=== PATIENT | female | born 1960 | race Caucasian/White ===

== ENCOUNTER 2018-07-13 10:14 | Day surgery (SDC) ==
--- NOTE | 2018-07-07 10:04 | EKG Report ---
Test Performed on : 07/07/2018 09:47:15 AM Test Reason : PAT Blood Pressure : / mmHG Vent. Rate : 069 BPM Atrial Rate : 069 BPM P-R Int : 134 ms QRS Dur : 092 ms QT Int : 412 ms P-R-T Axes : 046 021 053 degrees QTc Int : 441 ms Normal sinus rhythm. Normal ECG No previous ECGs available Confirmed by Ron Montemayor MD ([id number]) on 07/07/2018 10:25:06 AM
[2018-07-07 10:27] LABS: BASO# 0.13 X1000 (0.0-0.2); BASO% 2.3 % (0.0-0.8); EOS# 0.19 X1000 (0.0-0.7); EOS% 3.3 % (0.0-10.0); IMM GRAN# 0.02 X1000 (0.0-0.04); IMM GRAN% 0.4 % (0.0-0.5); LYMPH# 1.48 X1000 (1.2-3.4); MCH 31.9 PG (27-31); MCHC 34.1 g/dL (33-37); MCV 93.6 FL (81-99); MONO# 0.54 X1000 (0.11-0.59); MONO% 9.5 % (1.7-9.3); MPV 12.1 FL (7.4-10.4); NEUT# 3.33 X1000 (1.4-6.5); NEUT% 58.5 % (42.2-75.2); PLT 218 X1000 (130-400); RDW 12.7 % (11.5-14.5); WBC 5.69 X1000 (4.8-10.8)
[2018-07-07 11:02] LABS: AGAP 12; BUN 16 mg/dL (8-22); CALCIUM 10.5 mg/dL (8.8-10.2); CHLORIDE 103 mmol/L (98-107); COSMO 288; CREATININE 0.8 mg/dL (0.5-0.9); ESTIMATED GFR > 60; GLUCOSE 98 mg/dL (70-104); POTASSIUM 4.1 mmol/L (3.5-5.1); SODIUM 144 mmol/L (136-145); TCO2 29 mmol/L (25-35)
[2018-07-13] MEDS ORDERED: KEFZOL 1 GM/D5W 2 GM/100 ML IVPB ONE (10:43)
[2018-07-13] MEDS ORDERED: REGLAN ONE (10:43)
[2018-07-13] MEDS ORDERED: LR 1,000 ML ONE (10:43)
[2018-07-13] MEDS ORDERED: PEPCID ONE (10:43)
[2018-07-13] MEDS ORDERED: VALIUM ONE (11:28)
[2018-07-13] MEDS ORDERED: DIPRIVAN 1% ONE (11:40)
[2018-07-13] MEDS ORDERED: FENTANYL ONE (11:40)
[2018-07-13] MEDS ORDERED: ROBINUL ONE ×2 (11:40→13:24)
[2018-07-13] MEDS ORDERED: DECADRON ONE (11:40)
[2018-07-13] MEDS ORDERED: ZOFRAN ONE (11:40)
[2018-07-13] MEDS ORDERED: XYLOCAINE-MPF 2% ONE (12:17)
[2018-07-13] MEDS ORDERED: QUELICIN (DOSE) ONE (12:18)
[2018-07-13] MEDS ORDERED: VERSED ONE (12:18)
[2018-07-13] MEDS ORDERED: MARCAINE 0.25% PF/EPI 1:200,000 ONE (12:24)
[2018-07-13] MEDS ORDERED: NEOSTIGMINE ONE (13:25)
[2018-07-13] MEDS: DEMEROL ONE ×2 (14:51→14:56)
[2018-07-13] MEDS ORDERED: PHENERGAN ONE (15:09)
[2018-07-13] MEDS ORDERED: NORCO-5 ONE (15:10)
[2018-07-13] MEDS ORDERED: ZOFRAN IV PRN (15:43)
[2018-07-13] MEDS: NORCO-5 PO PRN ×2 (16:15→20:53)
--- NOTE | 2018-07-13 19:04 | OPERATIVE NOTE ---
PROCEDURE DATE: 07/13/2018 PREOPERATIVE DIAGNOSES: 1. Left thyroid nodule with atypical features on fine needle aspiration. 2. Compressive symptoms from thyroid enlargement. POSTOPERATIVE DIAGNOSES: 1. Left thyroid nodule with atypical features on fine needle aspiration. 2. Compressive symptoms from thyroid enlargement. PROCEDURE: Left thyroid lobectomy. SURGEON: Peter Lan MD. MATERIALS HANDLING COORDINATOR: Dr. Arnett. Dr. Arnett assisted with the entirety of the case. His presence was crucial for the completion of the case. ANESTHESIA: General endotracheal. INTRAOPERATIVE FINDINGS: Pathology showed benign follicular hyperplasia. COMPLICATIONS: None at the time of this dictation. ESTIMATED BLOOD LOSS: 50 mL. SPECIMENS REMOVED: Left thyroid lobe. BRIEF HISTORY: A 57-year-old female who previously had biopsied an enlarged thyroid. It came back atypical cells. We discussed options. She wanted to have a thyroid lobectomy. The risks, benefits, and alternatives were discussed. Risks including, but not limited to, bleeding, risk of recurrent laryngeal nerve injury, risk of parathyroid gland injury, risk of esophageal and tracheal injury were discussed. All questions answered. DESCRIPTION OF PROCEDURE: After informed consent was obtained, the patient was brought to the operative theater, transferred to the operating table, placed in supine position. General endotracheal anesthesia was then performed without complication. A formal time-out was then performed, confirming patient, date, procedure. All were in agreement. At that time, attention was given to the neck. We made a transverse incision 2 fingerbreadths above the sternal notch, carried all the way down to the platysma. We then created subplatysmal planes both superiorly and inferiorly. We then encountered the strap muscles. The strap muscles were deviated over to the right given the enlarged thyroid on the left. We found the median raphe and dissected through it. We started bluntly dissecting the thyroid off the strap muscles to facilitate exposure since there was such an enlarged thyroid. We had to transect the strap muscles. This gained us more exposure. We then turned our attention to the superior thyroid pole. We dissected it out free, preserving all major structures. We then came across the lateral edge and went to the inferior pole and freed it up. We then came to the medial part, identified what looked like 2 parathyroid glands, preserved them, ligated the middle thyroid vein and the arterial side. I did not directly see the recurrent laryngeal, but we stayed anatomically away from it, dissected the thyroid off, and eviscerated it. We then transected it at the isthmus. There was significant bleeding because the thyroid itself was very inflamed and friable, but we were able to remove it. We placed Surgifoam into the neck. We watched the neck. There was no bleeding noted. We then irrigated out the wound, closed the strap muscles together to reapproximate them, then closed the median raphe, then closed the platysma muscles, and then closed the skin. Preliminary pathology did not suggest a cancer. The patient tolerated the procedure well. Had a sterile dressing applied and was brought to the recovery room. We will watch her overnight given the bleeding and the size of the thyroid. cc: Peter Lan MD
[2018-07-13] MEDS ORDERED: PERIDEX MT SCH (21:00)
[2018-07-14] MEDS ORDERED: FLONASE NAS PRN (02:52)
[2018-07-14] MEDS ORDERED: SYNTHROID PO SCH (07:00)
[2018-07-14 07:25] VITALS: BP 132/66
[2018-07-14] MEDS: NORCO-5 PO PRN (08:30)
--- NOTE | 2018-07-14 08:38 | GENERAL SURGERY PROGRESS NOTE ---
DATE: 07/14/2018 SUBJECTIVE: Patient doing well. No change in her voice. She seems to be able to swallow okay. OBJECTIVE: Vital Signs: Patient is currently afebrile. Her vital signs are stable. General: No acute distress. Cardiovascular: Regular rate and rhythm. Lungs: Grossly clear. Neck: Some swelling noted on the left side, but otherwise doing okay. Voice is intact. ASSESSMENT AND PLAN: A 57-year-old female postoperative day #1 from left thyroid lobectomy. Postoperative state. At this time I observed her overnight given the amount of bleeding and the size of the thyroid. She has done well. I think we can discharge her home. cc: Peter Lan MD
[2018-07-14] MEDS ORDERED: AVAPRO PO SCH (09:00)
[2018-07-14] MEDS ORDERED: VITAMIN D PO SCH (09:00)
[2018-07-14] MEDS ORDERED: HYDROCHLOROTHIAZIDE PO SCH (09:00)
== END 2018-07-14 08:41 | disposition home or self-care (01) ==
LOC: 4N 10:14 → OPS 10:14 → OR 10:14 → OPS 07-14 08:41
PROVIDERS: ATTEND Surgery
CPT/HCPCS: 80048; 85025; 88307; 88313; 88331; 93005; 93010; 94761; 94799; A9270; J0330; J0690; J1100; J2175; J2250; J2405; J2550; J3010; J7120